=== PATIENT | female | born 1945 | race Caucasian/White ===

== ENCOUNTER 2021-07-04 15:41 | Emergency (ER) | payer MEDICARE ==
[~2021-07-04] VITALS: Ht 162.6 cm; Wt 99.8 kg
[2021-07-04] MEDS ORDERED: LISI5 (17:35)
[2021-07-04] MEDS ORDERED: METO25ER PO (17:35)
[2021-07-04] MEDS ORDERED: ROSU5 (17:36)
== END 2021-07-04 18:25 | disposition home or self-care (01) ==
LOC: ER 15:41
DX: S82.65XA Nondisplaced fracture of lateral malleolus of left fibula, initial encounter for closed fracture (principal); W18.30XA Fall on same level, unspecified, initial encounter; Z79.899 Other long term (current) drug therapy
CPT/HCPCS: 29515; 73610; 99283-25; A9270